=== PATIENT | female | born 1950 | race Caucasian/White ===

== ENCOUNTER 2020-08-13 09:00 | Outpatient (CLI) | payer MEDICARE, BC ==
[2020-08-13] VITALS (22 sets, daily range): BP systolic 71–111; BP diastolic 32–60
[~2020-08-13] VITALS: Ht 149.9 cm; Wt 54.9 kg
[2020-08-13 09:58] LABS: HEMOGLOBIN 14.3 g/dL (11.5-14.8); MONOCYTES # (AUTO) 0.4 /CMM (0.1-1.30); WHITE BLOOD COUNT (AUTO) 5.6 K/uL (4.3-11.0)
[2020-08-13 10:01] LABS: BASOPHILS % (AUTO) 0.8 % (0.0-2.0); EOSINOPHILS % (AUTO) 2.3 % (0.0-6.0); HEMATOCRIT 43 % (33-45); LYMPHOCYTES # (AUTO) 1.9 /CMM (0.8-4.8); LYMPHOCYTES % (AUTO) 33.1 % (20.0-44.0); MEAN CORPUSCULAR HGB CONC 33 g/dl (31.0-36.0); MEAN CORPUSCULAR VOLUME 92 fL (82-100); MONOCYTES % (AUTO) 6.8 % (2.0-12.0); NEUTROPHILS # (AUTO) 3.2 /CMM (1.8-8.9); PLATELET COUNT (AUTO) 211 /CMM (150-450)
[2020-08-13 10:18] LABS: CALCIUM, SERUM 8.8 mg/dL (8.5-10.1); CREATININE 0.8 mg/dL (0.6-1.3); POTASSIUM 3.7 mmol/L (3.5-5.1)
[2020-08-13 10:23] LABS: ALBUMIN 3.9 g/dL (3.4-5.0); BILIRUBIN,TOTAL 0.5 mg/dL (0.2-1.0); TOTAL PROTEIN, SERUM 7.2 g/dL (6.4-8.2)
[2020-08-13] MEDS ORDERED: LIDOCAINE HCL/MPF 1% 30 ML VIAL IJ ONE (10:25)
[2020-08-13] MEDS ORDERED: IODIXANOL 150 ML IV ONE (10:25)
[2020-08-13] MEDS ORDERED: FENTANYL PF 100MCG/2ML AMPUL ONE (10:42)
[2020-08-13] MEDS ORDERED: MIDAZOLAM HCL 2 MG/2ML VIAL ONE ×2 (10:42→11:51)
[2020-08-13] MEDS ORDERED: HEPARIN SODIUM, PORCINE 1,000 UNIT/ML VIAL ONE ×2 (10:42→11:30)
[2020-08-13] MEDS ORDERED: NITROGLYCERIN ICAR 1,000 MCG/10 ML VIAL ICAR ONE (11:21)
[2020-08-13] MEDS ORDERED: IODIXANOL 320MG/ML 50 ML IV ONE (11:24)
[2020-08-13] MEDS ORDERED: ASPIRIN 81 MG TAB.CHEW ONE (11:36)
[2020-08-13] MEDS ORDERED: TICAGRELOR 90 MG TABLET PO ONE (11:36)
--- NOTE | 2020-08-13 12:15 | NUR ---
HOP STRAINER NOTES RECEIVED PT FROM CARDIAC CATH, SP STENT. A/O X4. NO SOB OR ANY RESPIRATORY DISTRESS AT THIS TIME. TOLERATING ROOM AIR, SPO2 @100%. IV LINE IN PLACE. DRESSING ON RIGHT FEMORAL NOTED. CLEAN AND DRY. NO BLEEDING NOTED. PALPABLE PULSE NOTED. PROTOCOL FOLLOWED. WILL CLOSELY MONITOR.
[2020-08-13] MEDS ORDERED: IV NS 0.9% 1,000 ML IV ONE (12:30)
[2020-08-13] MEDS ORDERED: MORPHINE SULFATE INJ 2 MG/ML DISP.SYRIN IV ONE (13:30)
--- NOTE | 2020-08-13 17:27 | NUR ---
RN NOTES DISCHARGED PT TO HOME. A/O X4. TOLERATING ROOM AIR, SATURATING @100%. DENIES ANY PAIN. NO BLEEDING NOTED ON RIGHT FEMORAL AREA. BROUGHT TO LOBBY IN STABLE CONDITION. WENT HOME VIA PRIVATE CAR ACCOMPANIED BY . SKIN IS INTACT. VACCINATED THIS SEASON. LEFT IN STABLE CONDITION.
[2020-08-13] MEDS ORDERED: TICAGRELOR 90 MG TABLET PO SCH (23:30)
[2020-08-14] MEDS ORDERED: ASPIRIN 81 MG TAB.CHEW PO SCH (09:00)
== END 2020-08-13 16:00 | disposition home or self-care (01) ==
LOC: CATHLAB 09:00 → UNDOADMIN 13:27 → ICU 13:27 → CATHLAB 16:00 → UNDODISIN 17:30
PROVIDERS: ATTEND Internal Medicine
DX: I25.119 Atherosclerotic heart disease of native coronary artery with unspecified angina pectoris (principal); Z98.890 Other specified postprocedural states
CPT/HCPCS: 36415; 80053; 85025; 85610; 85730; 92928; 93005 ×2; 93458; 99152; 99153; C1725; C1769; C1887; C1894; J1644 ×3; J2250 ×2; J2270; J3010; J3490; Q9967; 92980; C9600; G0378; G0500